=== PATIENT | female | born 1980 | race Caucasian/White ===

== ENCOUNTER 2020-07-11 00:26 | Inpatient (IN) | payer OTHER, SELFPAY ==
[2020-07-11] VITALS (13 sets, daily range): BP systolic 105–169; BP diastolic 52–97
[~2020-07-11] VITALS: Ht 162.6 cm; Wt 125.7 kg
[2020-07-11] MEDS ORDERED: ZOFRAN IV STA ×2 (00:37→02:34)
[2020-07-11] MEDS ORDERED: TORADOL IV STA (00:37)
[2020-07-11] MEDS ORDERED: NS 1000ML 1,000 ML STA ×2 (00:37→02:46)
[2020-07-11] MEDS ORDERED: NS 1000ML 1,000 ML ONE (00:46)
[2020-07-11] MEDS ORDERED: ZOFRAN ONE ×3 (00:46→10:54)
[2020-07-11] MEDS ORDERED: TORADOL ONE ×2 (00:46→10:54)
--- NOTE | 2020-07-11 00:46 | ER.PDOC ---
General Chief Complaint: Abdomen Pain Stated Complaint: GALLBLADDER ATTACK Time seen by MD: 00:32 Source: patient Exam Limitations: no limitations History of Present Illness Initial Comments Patient reports that 1 hour [employer] she had onset of sharp RUQ pain that radiates to her back. She took tums thinking it was heartburn but the pain worsened. Pain is 10/10. Reports nausea but denies vomiting. Last BM was nml. Ate meatballs at 7pm. Has had prior gallbladder issues but this is much worse. Subjective fever and chills. Allergies: Coded Allergies: morphine (Verified Allergy, Severe, Headache, 07/11/20) PATIENT BECOMES AGGRESSIVE AND AGITATED Vital Signs First Vital Signs Date Time Temp Pulse Resp B/P (MAP) Pulse Ox O2 Delivery O2 Flow Rate FiO2 07/11/20 00:35 98.0 83 18 98 07/11/20 00:35 169/84 (112) Room Air Last Vital Signs Date Time Temp Pulse Resp B/P (MAP) Pulse Ox O2 Delivery O2 Flow Rate FiO2 07/11/20 00:35 98.0 83 18 07/11/20 00:35 169/84 (112) 98 Room Air Past Medical History Medical History: no pertinent history Social History Alcohol Use: occassionally Drug Use: none Reviewed Nursing Reviewed: Vital Signs, Abn. Noted, Nursing Assessment Constitutional: see HPI EENTM: no symptoms reported Respiratory: no symptoms reported Cardiovascular: no symptoms reported Gastrointestinal: see HPI Genitourinary: no symptoms reported Musculoskeletal: no symptoms reported Skin: no symptoms reported Psychiatric/Neurological: no symptoms reported All Other Systems: Reviewed and Negative Physical Exam General Appearance: Moderate Distress, Obese HEENT: PERRL/EOMI, Normal ENT Inspection Neck: Non-Tender, Supple Respiratory: chest non-tender, lungs clear, normal breath sounds, no respiratory distress Cardiovascular: Normal Peripheral Pulses, Regular Rate, Rhythm Gastrointestinal: Normal Bowel Sounds, Soft, Other (RUQ TTP. Positive Avalon Sign. No guarding or rebound) Back: Normal Inspection, No Vertebral Tenderness Neurologic/Psychiatric: No Motor/Sensory Deficits, Alert Skin: Normal Color, Warm/Dry Results/Orders Results/Orders Orders - RAULITO FAJARDO MD Cbc With Auto Diff (07/11/20 00:37) Comprehensive Metabolic Panel (07/11/20 00:37) Amylase (07/11/20 00:37) Lipase (07/11/20 00:37) PT (07/11/20 00:37) Partial Thromboplastin Time. (07/11/20 00:37) Urinalysis (07/11/20 00:37) Saline Lock (07/11/20 00:37) 0.9 % Sodium Chloride (Ns 1000ml) (07/11/20 00:37) Ketorolac Tromethamine (Toradol) (07/11/20 00:37) Ondansetron Hcl/Pf (Zofran) (07/11/20 00:37) Us Gallbladder (07/11/20 00:37) 0.9 % Sodium Chloride (Ns 1000ml) (07/11/20 00:46) Ondansetron Hcl/Pf (Zofran) (07/11/20 00:46) Ketorolac Tromethamine (Toradol) (07/11/20 00:46) Hcg Qualitative Serum (07/11/20 00:46) Fentanyl Citrate/Pf (Sublimaze) (07/11/20 02:34) Ondansetron Hcl/Pf (Zofran) (07/11/20 02:35) Fentanyl Citrate/Pf (Sublimaze) (07/11/20 02:34) Ondansetron Hcl/Pf (Zofran) (07/11/20 02:34) Vital Signs Date Time Temp Pulse Resp B/P (MAP) Pulse Ox O2 Delivery O2 Flow Rate FiO2 07/11/20 00:35 98.0 83 18 07/11/20 00:35 98.0 83 18 169/84 (112) 98 Room Air 07/11/20 00:35 98.0 83 18 98 Administered Medications Medications (Trade) Dose Ordered Sig/Dorene Route PRN Reason Start Time Stop Time Status Last Admin Dose Admin Ketorolac Tromethamine (Toradol) 30 mg STAT STAT IV 07/11/20 00:37 07/11/20 00:43 DC 07/11/20 01:06 30 MG Ondansetron HCl (Zofran) 4 mg STAT STAT IV 07/11/20 00:37 07/11/20 00:43 DC 07/11/20 01:06 4 MG Sodium Chloride 1,000 ml @ 0 mls/hr Q0M STAT IV 07/11/20 00:37 07/11/20 00:43 DC 07/11/20 01:06 1,200 MLS/HR Laboratory Tests Test 07/11/20 00:50 White Blood Count 10.0 10^3/uL (4.5-11.0) Red Blood Count 4.94 10^6/uL (4.00-5.20) Hemoglobin 13.9 g/dL (12.0-15.0) Hematocrit 41.9 % (36.0-46.0) Mean Corpuscular Volume 84.8 fL (78-100) Mean Corpuscular Hemoglobin 28.1 pg (26-34) Mean Corpuscular Hemoglobin Concent 33.2 g/dL (33-36.5) Red Cell Distribution Width 13.4 % (11.5-14.5) Platelet Count 252 10^3/uL (150-400) Mean Platelet Volume 9.5 fL (7.8-11.0) Neutrophils (%) (Auto) 47.5 % (41.0-85.0) Lymphocytes (%) (Auto) 43.3 % (24.0-44.0) Monocytes (%) (Auto) 6.7 % (5.0-12.0) Neutrophils # (Auto) 4.8 10^3/uL (1.8-7.7) Lymphocytes # (Auto) 4.34 10^3/uL1 (1.0-4.8) Monocytes # (Auto) 0.7 10^3/uL (0.3-0.8) Absolute Immature Granulocyte (auto 0.03 10^3 u/L (0-2) Absolute Eosinophils (auto) 0.2 10^3/uL (0.0-0.2) Immature Granulocytes % 0.30 % (0.00-0.50) Eosinophils % 1.8 % (0.0-5.0) Basophils % 0.4 % (0.0-0.2) H Basophils # 0.0 10^3/uL (0.0-0.1) Prothrombin Time 10.8 SEC (9.3-11.3) Prothrombin Time INR (Non-Therap) 1.1 Activated Partial Thromboplast Time 19.1 SEC (24.67-30.72) Sodium Level 141 mmol/L (132-145) Potassium Level 4.0 mmol/L (3.6-5.2) Chloride Level 106.0 mmol/L (96-109) Carbon Dioxide Level 24.4 mmol/L (20.0-32) Anion Gap 14.6 Blood Urea Nitrogen 14 mg/dL (7-18) Creatinine 0.95 mg/dL (0.59-1.40) Estimated GFR () 79.2 (>/=60) Est GFR (CKD-EPI)(Non-Afr Lao) 65.5 (>/=60) BUN/Creatinine Ratio 14.0 Glucose Level 114 mg/dL (70-110) H Calcium Level 9.0 mg/dL (8.4-10.5) Total Bilirubin 0.2 mg/dL (0.2-1.0) Aspartate Amino Transferase (AST) 13 U/L (0-35) Alanine Aminotransferase (ALT) 23 U/L (12-78) Alkaline Phosphatase 64 U/L (50-136) Total Protein 7.1 g/dL (6.4-8.2) Albumin 3.8 g/dL (3.4-5.0) Globulin 3.3 Albumin/Globulin Ratio 1.151 Amylase Level 42 U/L (25-115) Lipase 163 U/L (114-286) Serum HCG, Qualitative NEGATIVE (NEGATIVE) Progress Progress The patient feels improved on repeat evaluation. Pain is down to 2/10 in severity. Abdominal exam is much improved with very mild tenderness on palpation of the RUQ and negative Avalon sign. She is afebrile and WBC are normal although on the high side of normal. US is suggestive of early acute cholecystitis vs biliary colic. MInimal thickening of the GB wall at 4mm but without pericholic fluid. Discussed admission for surgical evaluation vs d ischarge with outpatient surgical referral. She understands that is she goes home and the pain returns she can return at any time. SHe will be given PO challenge and let us know how she would like to proceed pain is returning after PO challenge. Patient agreeable to admission Discussed with Dr Santos. He requested that she be admitted to the Hospitalist. She was then discussed with Dr Blandon and accepted for admission. Zosyn ordered for Abx coverage ER DEPART Departure Time of Disposition: 02:44 Disposition: 09 ADMITTED INPATIENT Impression: Primary Impression: Acute cholecystitis Condition: Stable Referrals: PCP,UNKNOWN (PCP) PRIMARY CARE PROVIDER Duration or Time Spent with Pa: 25 RAULITO FAJARDO MD Jul 11, 2020 00:46
--- NOTE | 2020-07-11 01:15 | NUR ---
US PATIENT TAKEN TO US VIA WHEELCHAIR WITH IVF INFUSING. MITZY, TECH TO TRANSPORT.
[2020-07-11 01:19] LABS: BASOPHIL % 0.4 % (0.0-0.2); EOSINOPHIL # 0.2 10^3/uL (0.0-0.2); EOSINOPHIL % 1.8 % (0.0-5.0); LYMPHOCYTES # 4.34 10^3/uL1 (1.0-4.8); LYMPHOCYTES % 43.3 % (24.0-44.0); MEAN CORP HGB 28.1 pg (26-34); MONOCYTES # 0.7 10^3/uL (0.3-0.8); MONOCYTES % 6.7 % (5.0-12.0); NEUTROPHIL # 4.8 10^3/uL (1.8-7.7); NEUTROPHILS % 47.5 % (41.0-85.0); PLATELET COUNT 252 10^3/uL (150-400); RED CELL DISTRIBUTION WIDTH 13.4 % (11.5-14.5)
[2020-07-11 01:30] LABS: CARBON DIOXIDE 24.4 mmol/L (20.0-32)
[2020-07-11] MEDS ORDERED: SUBLIMAZE IV STA (02:34)
[2020-07-11] MEDS ORDERED: SUBLIMAZE ONE ×2 (02:34→10:55)
[2020-07-11] MEDS ORDERED: ZOSYN 3.375 GM 3.375 GM in NS 100ML 100 ML IV STA (02:45)
--- NOTE | 2020-07-11 03:05 | NUR ---
This received patient and report via stretcher from Winifred DELGADO. Patient stable, vs wnl, with no respiratory distress noted, and denies pain or discomfort at this time. Will continue to monitor.
[2020-07-11 03:09] LABS: APPEARANCE,URINE TURBID (CLEAR); BILIRUBIN,URINE NEGATIVE (NEGATIVE); UA COLOR YELLOW (YELLOW); UROBILINOGEN,URINE 0.2 (NEGATIVE)
[2020-07-11] MEDS ORDERED: NS 1000ML 1,000 ML IV SCH (09:00)
[2020-07-11] MEDS ORDERED: ULTRAM PO PRN (09:00)
[2020-07-11] MEDS ORDERED: ZOFRAN IV PRN (09:00)
--- NOTE | 2020-07-11 09:26 | PCM.HP ---
History of Present Illness Hx of Present Illness 40-year-old morbidly obese female presented to [facility] secondary to right upper quadrant pain With radiation to back with associated nausea But no vomiting. Patient notes that her symptoms initiated Late last night. Her pain was reported to be 10 of 10 at that time currently 5 out of 10 on examination positive Cazares sign. Ultrasound of right upper quadrant revealed cholelithiasis with borderline wall thickening at 4mm tech reported positive Cazares sign. No pericholecystic fluid.General surgery has been consulted much appreciated will follow recommendations. We will continue antimicrobial therapy maintain n.p.o. and IV fluid therapy with pain control with p.o. analgesics.Deb ent describes previous medical history gallbladder pain approximately 1 year ago that was less severe than her current situation.Patient does not take any home medications. Travel History EBOLA RISK:Travel to/contact w: No Is pt experiencing any Ebola s: No Review of Systems Constitutional: No: Fever, Chills, Sweats, Weakness, Malaise, Other Eyes: No: Pain, Vision change, Conjunctivae inflammation, Eyelid inflammation, Other, Redness ENT: No: Ear pain, Ear discharge, Nose pain, Nose discharge, Nose congestion, Mouth pain, Mouth swelling, Throat pain, Throat swelling, Other Respiratory: No: Cough, Dry, Shortness of breath, SOB with excertion, Wheezing, Hemoptysis, Pleuritic Pain, Sputum, Wheezing, Other Cardiovascular: No: Chest Pain, Palpitations, Orthopnea, Paroxysmal Noc. Dyspnea, Edema, Lt Headedness, Other Gastrointestinal: Nausea, Abdominal Pain; No: Vomiting, Diarrhea, Constipation, Melena, Hematochezia, Other Genitourinary: No Dysuria, No Frequency, No Incontinence, No Hematuria, No Retention, No Other Musculoskeletal: No: other, neck pain, shoulder pain, arm pain, back pain, hand pain, leg pain, foot pain Skin: No: Rash, Lesions, Jaundice, Bruising, Other Neurological: No: Weakness, Numbness, Incoordination, Change in speech, Confusion, Seizures, Other Allergies: Coded Allergies: morphine (Verified Allergy, Severe, Headache, 07/11/20) PATIENT BECOMES AGGRESSIVE AND AGITATED VTE VTE Risk Total Score: 1 VTE Risk Score VTE Risk: Score 0-1 = Low Risk (Aggressive mobilization; early ambulation; no VTE prophylaxis required) Score 2: Moderate Risk (Intermittent/Pneumatic Compression Device OR Lovenox/Heparin/Coumadin) Score 3-4: High Risk (Intermittent/Pneumatic Compression Device AND Lovenox/Heparin/Coumadin) Score > or =5: Highest Risk (Intermittent/Pneumatic Compression Device AND Lovenox/Heparin/Coumadin) Antico:Hep/LMWH/Coum/Xarelto: No Mechanical device ordered: Yes VTE VTE Present on Admission: No Currently receiving anticoagul: No VTE Risk Total Score: 1 Exam Vital Signs Vital Signs Date Time Temp Pulse Resp B/P (MAP) Pulse Ox O2 Delivery O2 Flow Rate FiO2 07/11/20 09:08 Room Air 07/11/20 08:27 98.0 65 24 105/52 (69) 92 General Appearance: Alert, Oriented X3, Cooperative HEENT: Atraumatic, PERRLA, EOMI, Mucous membr. moist/pink Respiratory: Clear to auscultation, Normal air movement Cardiovascular: Regular rate, Normal S1, Normal S2 Abdominal: Other (Right upper quadrant tenderness, positive Cazares sign) Extremities: No clubbing, No cyanosis, No edema Skin: No rash, No breakdown, No lesions Neuro: Normal gait, Normal speech, Strength at 5/5 X4 ext Psych/Mental Status: Mental status NL, Mood NL Assessment/Plan Assessment/Plan Assessment/Plan 40-year-old morbidly obese female presented to [facility] secondary to right upper quadrant pain With radiation to back with associated nausea But no vomiting. Patient notes that her symptoms initiated Late last night. Her pain was reported to be 10 of 10 at that time currently 5 out of 10 on examination po sitive Cazares sign. Ultrasound of right upper quadrant revealed cholelithiasis with borderline wall thickening at 4mm tech reported positive Cazares sign. No pericholecystic fluid.General surgery has been consulted much appreciated will follow recommendations. We will continue antimicrobial therapy maintain n.p.o. and IV fluid therapy with pain control with p.o. analgesics.Patient describes previous medical history gallbladder pain approximately 1 year ago that was less severe than her current situation.Patient does not take any home medications. Plan Cholelithiasis Ultrasound revealed cholelithiasis, not excluded from acute cholecystitis C BD 5 mm. Borderline gallbladder wall thickening at 4 mm positive Cazares sign Consultation to general surgery much appreciated will follow recommendations N.p.o. IV fluid therapy P.o. analgesic pain control Zosyn antimicrobial therapy RAQUEL Lund NP Jul 11, 2020 09:26
[2020-07-11] MEDS ORDERED: SUBLIMAZE IV PRN (09:30)
--- NOTE | 2020-07-11 09:42 | PCM.EKG ---
[facility] Test Date: 2020-07-11 Test Time: 09:39:27 Pat Name: BRO PETERS Department: Room: 330 A Gender: F Therapist Phys: MARGRET : [id number] Requested By: RAQUEL INMAN Order Number: [id number] Reading MD: Measurements Intervals Warden Rate: 65 P: 61 VT: 158 QRS: -2 QRSD: 104 T: 25 QT: 406 QTc: 423 Interpretive Statements Sinus rhythm Low voltage, precordial leads No previous ECG available for comparison Please click the below link to view image of tracing.
[2020-07-11] MEDS ORDERED: ZOSYN 3.375 GM 3.375 GM in NS 100ML 100 ML IV SCH (10:00)
--- NOTE | 2020-07-11 10:45 | PRM.CONS ---
Consultation Reason for Consult: Reason for Consultation: Acute cholecystitis History of Present Illness History of Patient Comments This is a 40yo woman with morbid obesity BMI 47, who presents with several hours of severe abdominal pain. Pain began 2h after eating meat load yest evening and was focused in the right upper quadrant. The pain gradually worsened and was stabbing in nature with radiation to the back and shoulder, and was a/w nausea without emesis and with chills without fever. The pt presented to the ED for evaluation. She experienced a similar attack of pain a year or so ago in [place] and was informed she had gallstone disease; she did not pursue cholecystectomy at that time. In the ED the pt was found to be afebrile. There was abdominal tenderness and labs showed a WBC ct 10 with normal LFTs, serum bilirubin, and lipase. a RUQ US showed cholelithiasis without signs of acute cholecystitis. The patient was admitted to the hospital and started on broad spec abx and kept NPO until time of consultation. This morning, she feels somewhat better but still has some soreness in the RUQ. It has improved from prior. She has remained afebrile. Vitals & Lab Afebrile HR 82 BP 120/64 General Time seen by MD: 07:03 Source: patient Exam Limitations: no limitations Allergies Allergies: Coded Allergies: morphine (Verified Allergy, Severe, Headache, 07/11/20) PATIENT BECOMES AGGRESSIVE AND AGITATED Physical Exam General Appearance: alert, no distress Head: no evidence of trauma Neck: non-tender, painless ROM Eyes: PERRL, EOMI, no nystagmus ENT: nml ext. inspection Resp/CVS: chest non-tender, no ecchymosis, breath sounds nml, no resp. distress, heart sounds nml Abdomen: other (Soft; obese. There is ttp in the RUQ and no Cazares's sign is present.) Neuro/Psych: oriented x3, CN's nml as tested Skin: intact, warm/dry, nml color Back: no CVA tenderness, no vertebral tenderness Extremities: No Evidence of Injury, Normal Range of Motion, Non-Tender, No Pedal Edema Nasreen Coma Score Best Eye Response: (4) Open Spontaneously Best Verbal Response: (5) Oriented Best Motor Response: (6) Obeys Commands Review of Systems Constitutional: No: Fever, Chills, Sweats, Weakness, Malaise, Other Eyes: No: Pain, Vision change, Conjunctivae inflammation, Eyelid inflammation, Other, Redness ENT: No: Ear pain, Ear discharge, Nose pain, Nose discharge, Nose congestion, Mouth pain, Mouth swelling, Throat pain, Throat swelling, Other Respiratory: No: Cough, Dry, Shortness of breath, SOB with excertion, Wheezing, Hemoptysis, Pleuritic Pain, Sputum, Wheezing, Other Cardiovascular: No: Chest Pain, Palpitations, Orthopnea, Paroxysmal Noc. Dyspnea, Edema, Lt Headedness, Other Gastrointestinal: Nausea, Abdominal Pain; No: Vomiting, Diarrhea, Constipation, Melena, Hematochezia, Other Genitourinary: No Dysuria, No Frequency, No Incontinence, No Hematuria, No Retention, No Other Musculoskeletal: No: other, neck pain, shoulder pain, arm pain, back pain, hand pain, leg pain, foot pain Skin: No: Rash, Lesions, Jaundice, Bruising, Other Neurological: No: Weakness, Numbness, Incoordination, Change in speech, Confusion, Seizures, Other VTE VTE Risk assessment 3 VTE Risk Total Score: 1 VTE Risk Score VTE Risk: Score 0-1 = Low Risk (Aggressive mobilization; early ambulation; no VTE prophylaxis required) Score 2: Moderate Risk (Intermittent/Pneumatic Compression Device OR Lovenox/Heparin/Coumadin) Score 3-4: High Risk (Intermittent/Pneumatic Compression Device AND Lovenox/Heparin/Coumadin) Score > or =5: Highest Risk (Intermittent/Pneumatic Compression Device AND Lovenox/Heparin/Coumadin) Antico:Hep/LMWH/Coum/Xarelto: Yes Mechanical device ordered: Yes Assessment/Plan Assessment/Plan Assessment/Plan This is a 40yo woman withj morbid obesity who presents with what appears to be biliary colic. Plan Will plan for laparoscopic cholecystectomy today The risks, benefits, alternatives were discussed with the patient including but not limited to, bleeding, infection, hernia, ACS/AR, DVT/PE, wound complications, need for open surgery, bile duct injury, bile leak, retained gallstone, and she provided informed consent. JARAD AZEVEDO MD Jul 11, 2020 10:45
[2020-07-11] MEDS ORDERED: SODIUM CHLORIDE IRR BOTTLE IR ONE (10:50)
[2020-07-11] MEDS ORDERED: SODIUM CHLORIDE IRR BAG IR ONE (10:50)
[2020-07-11] MEDS ORDERED: LIDOCAINE 2% VIAL ONE (10:53)
[2020-07-11] MEDS ORDERED: BRIDION IV ONE (10:54)
[2020-07-11] MEDS ORDERED: ROCURONIUM BROMIDE IV ONE (10:54)
[2020-07-11] MEDS ORDERED: DIPRIVAN IV ONE (10:55)
[2020-07-11] MEDS ORDERED: DECADRON ONE (10:55)
[2020-07-11] MEDS ORDERED: QUELICIN ONE (10:55)
[2020-07-11] MEDS ORDERED: SENSORCAINE-MPF 0.25% VIAL ONE (11:02)
[2020-07-11] MEDS ORDERED: OFIRMEV 100 ML IV ONE (11:17)
--- NOTE | 2020-07-11 11:39 | PRM.OPH ---
Immediate Post Op Note Summary of Operation Date: Jul 11, 2020 Time: 11:38 Pre-Operative DX: Biliary colic Post-OP DX: Acute cholecystitis Anesth.Used: GETA Indications: This is a 40-year-old woman who is recently post- who has a history of symptomatic cholelithiasis. She presents with several hours of upper abdominal pain, nausea, and emesis. There was tenderness in these areas on physical exam and the patient was afebrile. White blood cell count, LFTs, and lipase preoperatively were normal. Ultrasound demonstrated cholelithiasis with signs suggestive of cholecystitis. The patient was given IV antibiotic and counseled on the risks, benefits, and alternatives to laparoscopic cholecystectomy. She provided informed consent. Physician's Summary: The patient was brought to the operating room and placed supine on the OR table. Venodyne boots were applied; preoperative antibiotics had been administered. She then underwent general anesthesia and was intubated without incident. The abdomen was prepped and draped in the usual fashion. A time out was performed for patient safety. We began by making a stab incision in the left upper quadrant; a Veress needle was placed and after appropriate safety check x 5, a pneumoperitoneum to a pressure of 15mm Hg was obtained. A 12mm incision was made in the supraumbilical region and an optical viewing trocar was placed at this site. We inserted the laparoscope and ensured there had been no entry injuries. The Veress needle was removed. Three 5mm trocars were then placed; one in the subxiphoid region, one in the right subcostal region, and one in the lateral right abdomen. The gallbladder was found in its normal anatomic position and was acutely inflamed. Jami's pouch was identified and retracted laterally and the fundus of the gallbladder was grasped and retracted cephalad. The peritoneum over the region of the gallbladder was incised with cautery in a region overlying Calot's triangle. The peritoneum continued to be opened medially and laterally, with the L-hook. We did this until we mobilized the gallbladder and the cystic plate was identified; the cystic duct and artery were identified and dissected free. A large stone impacted in the neck of the gallbladder was advanced into the distal gallbladder lumen. A critical view of safety was obtained. The cystic duct and artery were triply clipped with the laparoscopic clip annealer. Both structures were then divided with Endoshears, with care to ensure stumps of adequate length on both. I did place a 0-PDS Endoloop below the clips on the cystic duct remnant, as it appeared somewhat dilated. No palpable stones were present distally, however. In order to do this, a separate 5mm trocar was placed in the paramedian position on the right, to aid in retraction of omental fat. The gallbladder was then placed in an Endocatch bag and retrieved from the umbilical port; it was then sent off the field to pathology. We inspected the gallbladder fossa and ensured hemostasis. The stump of the cystic duct was inspected; the clips remained in place and there was no bile leak present. With this, we terminated the procedure. The anterior fascia at the umbilical port site was closed with an 0-Vicryl suture using the Dmitry-Karo device, in a figure of eight technique. The trocars were then removed and the pneumoperitoneum was released. Local anesthetic was used at the port sites and the skin of all incisions was closed with 4-0 Monocryl suture. Dermabond was placed as dressing. All scrub counts were complete x 2 at this point. The patient had tolerated the procedure well and was extubated without complications. She was thereafter sent to the recovery room in stable condition. I was present and scrubbed for the entirety of this case. Estimated Blood Loss: EBL/ESTIMATED BLOOD LOSS: (MIL: 10 Complications: Complications: None Assessment & Plan: Assessment & Plan: Extubated and to recovery, in stable condition JARAD AZEVEDO MD Jul 11, 2020 11:39
[2020-07-11] MEDS ORDERED: HEPARIN ONE (12:11)
[2020-07-11] MEDS ORDERED: VENTOLIN HFA IH ONE (13:39)
[2020-07-11] MEDS ORDERED: ACET1TAB34 PO (14:33)
--- NOTE | 2020-07-11 14:36 | NUR ---
Pt returned to floor via stretcher post op procedure cholecystectomy. Report given by nurse.Pt awake oriented X 3 groggy from anesthesia Vital signs stable, c/o pain to the abdomen surgical site but tolerable. Fluids running , O2 @ 2L via NC.No drainage noted to surgical site.
--- NOTE | 2020-07-11 16:26 | DIREP ---
PROCEDURE: US ABDOMEN LIMITED (SINGLE ORGAN - QUAD) COMPARISON: None. INDICATIONS: RUQ pain TECHNIQUE: High resolution sonographic examination was performed of the abdomen. FINDINGS: RIGHT KIDNEY: 10.74 cm x 4.49 cm x 4.64 cm, 117.31 ml GALL BLADDER WALL: 3.73 mm CBD: 5 mm PANCREAS: Normal. LIVER: Diffusely hyperechoic, consistent with steatosis. No focal lesion noted. BILIARY: Cholelithiasis. Borderline gallbladder wall thickening at 4 mm. Tech reports a positive sonographic Cazares's sign. No pericholecystic fluid. RIGHT KIDNEY: Negative. OTHER: Negative. CONCLUSION: 1. Cholelithiasis with minimal gallbladder wall thickening and positive sonographic Cazares's sign. Acute cholecystitis is not excluded in this setting. 2. Hepatic steatosis. Dictated by: Manpreet Manley M.D. on 07/11/2020 at 02:04 AM N [facility]
--- NOTE | 2020-07-11 17:28 | PRM.DC ---
Discharge Summary Date of Discharge: Jul 11, 2020 Time of Request to Discharge: 17:21 Reason for Visit: Acute cholecystitis Hospital Course Assessment/Plan 40-year-old morbidly obese female presented to [facility] secondary to right upper quadrant pain With radiation to back with associated nausea But no vomiting. Patient notes that her symptoms initiated Late last night. Her pain was reported to be 10 of 10 at that time currently 5 out of 10 on examination positive Cazares sign. Ultrasound of right upper quadrant revealed cholelithiasis with borderline wall thickening at 4mm tech reported positive Cazares sign. No pericholecystic fluid.General surgery has been consulted much appreciated will follow recommendations. We will continue antimicrobial therapy maintain n.p.o. and IV fluid therapy with pain control with p.o. analgesics.Patient describes previous medical history gallbladder pain approximately 1 year ago that was less severe than her current situation.Patient does not take any home medications. Plan CholelithiasisWith cholecystitis Ultrasound revealed cholelithiasis, not excluded from acute cholecystitis C BD 5 mm. Borderline gallbladder wall thickening at 4 mm positive Cazares sign Consultation to general surgery much appreciated will follow recommendations- Patient underwent cholecystectomy laparoscopic tolerating p.o. IV fluid therapy P.o. analgesic pain control Zosyn antimicrobial therapy Zofran General: Alert, Oriented X3, Cooperative HEENT: Atraumatic, PERRLA, EOMI Neck: Supple, No JVD, No thyromegaly Lungs: Clear to auscultation, Normal air movement Heart: Regular rate, Normal S1, Normal S2 Abdomen: Normal bowel sounds, Soft, Other (Tenderness to surgical incision sites) Extremities: No clubbing, No cyanosis, No edema Skin: No rashes, No breakdown, No significant lesion Neuro: Normal gait, Normal speech, Strength at 5/5 X4 ext Psych/Mental Status: Mental status NL, Mood NL Scheduled PRN Acetaminophen With Codeine (Tylenol-Cod #3 Tablet), 1 TAB PO Q6 PRN for PAIN, (Reported) Sepsis Evaluation @ Discharge 07/11/20 04:20 Review of Systems Constitutional: denies no symptoms reported, denies see HPI, denies chills, denies diaphoresis, denies fever, denies malaise, denies weakness, denies other EENTM: denies no symptoms reported, denies see HPI, denies eye pain, denies blurred vision, denies tearing, denies double vision, denies ear pain, denies ear discharge, denies nose pain, denies nose congestion, denies throat pain, denies throat swelling, denies mouth pain, denies mouth swelling, denies other Respiratory: denies no symptoms reported, denies see HPI, denies cough, denies orthopnea, denies shortness of breath, denies stridor, denies wheezing, denies other Cardiovascular: denies no symptoms reported, denies see HPI, denies chest pain, denies edema, denies palpitations, denies syncope, denies other Gastrointestinal: denies no symptoms reported; see HPI; denies abdominal pain, denies constipation, denies diarrhea, denies nausea, denies vomiting, denies other Genitourinary: denies no symptoms reported, denies see HPI, denies discharge, denies dysuria, denies frequency, denies hematuria, denies pain, denies other Musculoskeletal: denies no symptoms reported, denies see HPI, denies back pain, denies gout, denies joint pain, denies joint swelling, denies muscle pain, denies muscle stiffness, denies neck pain, denies other Skin: denies no symptoms reported; see HPI; denies change in color, denies change in hair/nails, denies dryness, denies lesions, denies lumps, denies rash; other (surgical incisional pain) Psychiatric/Neurological: denies no symptoms reported, denies see HPI, denies anxiety, denies depressed, denies emotional problems, denies headache, denies numbness, denies paresthesia, denies pre-existing deficit, denies seizure, denies tingling, denies tremors, denies weakness, denies other Endocrine: denies no symptoms reported, denies see HPI, denies excessive sweating, denies flushing, denies intolerance to cold, denies intolerance to he at, denies increased hunger, denies increased thrist, denies increased urine, denies unexplained weight gain, denies unexplaned weight loss, denies other Hematologic/Lymphatic: denies no symptoms reported, denies see HPI, denies anemia, denies blood clots, denies easy bleeding, denies easy bruising, denies swollen glands, denies other All Other Systems: Reviewed and Negative Course Sepsis Screening Results: Posi: NEGATIVE Sepsis Qualifier/Stage: NO DEFINITE RISK Duration or Total Time Spent w: 25 Vitals & review Data Vital Sign - Last 24 Hours 07/11/20 07/11/20 07/11/20 07/11/20 00:35 00:35 00:35 01:35 Temp 98.0 98.0 98.0 Pulse 83 83 83 73 Resp 18 18 18 16 B/P (MAP) 169/84 (112) 154/73 (100) Pulse Ox 98 98 100 O2 Delivery Room Air Room Air 07/11/20 07/11/20 07/11/20 07/11/20 02:35 03:10 04:10 04:12 Temp 97.7 97.7 Pulse 81 83 77 Resp 17 18 18 B/P (MAP) 157/84 (108) 154/77 (102) 138/67 (90) Pulse Ox 98 95 O2 Delivery Room Air Room Air Room Air Room Air O2 Flow Rate 98.00 07/11/20 07/11/20 07/11/20 07/11/20 08:27 09:08 13:50 13:50 Temp 98.0 97.8 Pulse 65 93 Resp 24 16 B/P (MAP) 105/52 (69) 150/93 (112) Pulse Ox 92 O2 Delivery Room Air Non-Rebreather O2 Flow Rate 15 15 07/11/20 07/11/20 07/11/20 07/11/20 13:55 14:00 14:10 14:20 Temp 97.8 97.9 97.9 97.8 Pulse 91 87 88 88 Resp 16 16 18 18 B/P (MAP) 148/89 (108) 156/95 (115) 141/89 (106) 141/89 (106) Pulse Ox 95 95 95 95 O2 Delivery Non-Rebreather Non-Rebreather Nasal [place] Nasal Canula O2 Flow Rate 15 15 3 3 07/11/20 14:25 Temp 97.8 Pulse 98 Resp 18 B/P (MAP) 148/92 (110) Pulse Ox 94 O2 Delivery Nasal [place] O2 Flow Rate 3 Laboratory Tests Test 07/11/20 00:50 07/11/20 03:00 07/11/20 09:29 White Blood Count 10.0 10^3/uL Red Blood Count 4.94 10^6/uL Hemoglobin 13.9 g/dL Hematocrit 41.9 % Mean Corpuscular Volume 84.8 fL Mean Corpuscular Hemoglobin 28.1 pg Mean Corpuscular Hemoglobin Concent 33.2 g/dL Red Cell Distribution Width 13.4 % Platelet Count 252 10^3/uL Mean Platelet Volume 9.5 fL Neutrophils (%) (Auto) 47.5 % Lymphocytes (%) (Auto) 43.3 % Monocytes (%) (Auto) 6.7 % Neutrophils # (Auto) 4.8 10^3/uL Lymphocytes # (Auto) 4.34 10^3/uL1 Monocytes # (Auto) 0.7 10^3/uL Absolute Immature Granulocyte (auto 0.03 10^3 u/L Absolute Eosinophils (auto) 0.2 10^3/uL Immature Granulocytes % 0.30 % Eosinophils % 1.8 % Basophils % 0.4 % Basophils # 0.0 10^3/uL Prothrombin Time 10.8 SEC 10.7 SEC Prothrombin Time INR (Non-Therap) 1.1 1.1 Activated Partial Thromboplast Time 19.1 SEC 23.4 SEC Sodium Level 141 mmol/L Potassium Level 4.0 mmol/L Chloride Level 106.0 mmol/L Carbon Dioxide Level 24.4 mmol/L Anion Gap 14.6 Blood Urea Nitrogen 14 mg/dL Creatinine 0.95 mg/dL Estimated GFR () 79.2 Est GFR (CKD-EPI)(Non-Afr Guamanian) 65.5 BUN/Creatinine Ratio 14.0 Glucose Level 114 mg/dL Calcium Level 9.0 mg/dL Total Bilirubin 0.2 mg/dL Aspartate Amino Transf (AST/SGOT) 13 U/L Alanine Aminotransferase (ALT/SGPT) 23 U/L Alkaline Phosphatase 64 U/L Total Protein 7.1 g/dL Albumin 3.8 g/dL Globulin 3.3 Albumin/Globulin Ratio 1.151 Amylase Level 42 U/L Lipase 163 U/L Serum HCG, Qualitative NEGATIVE Urine Collection Type CCMS Urine Color YELLOW Urine Appearance TURBID Urine Bilirubin NEGATIVE MG/DL Urine Ketones NEGATIVE Urine Specific [place] 1.025 Urine pH 7.0 Urine Protein NEGATIVE Urine Urobilinogen 0.2 Urine Nitrate NEGATIVE Urine Leukocyte Esterase NEGATIVE Urine Blood NEGATIVE Urine Glucose NEGATIVE Current Medications Medications (Trade) Dose Ordered Sig/Dorene PRN Reason Start Time Stop Time Status Last Admin Fentanyl Citrate (Sublimaze) 25 mcg Q6H PRN PAIN 7 - 10 07/11/20 09:30 08/10/20 09:29 Ondansetron HCl (Zofran) 4 mg Q4H PRN NAUSEA / VOMITING 07/11/20 09:00 08/10/20 08:59 Piperacillin Sod/ Tazobactam Sod 3.375 gm/Sodium Chloride 100 ml @ 100 mls/hr Q6H 07/11/20 10:00 08/10/20 09:59 07/11/20 10:20 Sodium Chloride 1,000 ml @ 100 mls/hr Q10H 07/11/20 09:00 08/10/20 08:59 07/11/20 10:20 Tramadol HCl (Ultram) 50 mg Q4HR PRN PAIN 4 - 6 07/11/20 09:00 08/10/20 08:59 07/11/20 10:30 LEVEL 1 SEPSIS INFECTION CRITE: ABX Therapy, Abdominal Pain O2 Sat by Pulse Oximetry: 94 Oxygen Flow Rate: 3 Plan Assessment 40-year-old morbidly obese female presented to [facility] secondary to right upper quadrant pain With radiation to back with associated nausea But no vomiting. Patient notes that her symptoms initiated Late last night. Her pain was reported to be 10 of 10 at that time currently 5 out of 10 on examination positive Cazares sign. Ultrasound of right upper quadrant revealed cholelithiasis with borderline wall thickening at 4mm tech reported positive Cazares sign. No pericholecystic fluid.General surgery has been consulted much appreciated will follow recommendations. We will continue antimicrobial therapy maintain n.p.o. and IV fluid therapy with pain control with p.o. analgesics.Patient describes previous medical history gallbladder pain approximately 1 year ago that was less severe than her current situation.Patient does not take any home medications. Patient underwent Lap Maru with Juan A today. FU in one week at clinic. Tolerating PO, some incisional tenderness . Splinting with pillow on cough . T3 for pain control . Discharge Disposition: Stable Plan Plan : DC home Cholelithiasis/Cholecystitis Ultrasound revealed cholelithiasis, not excluded from acute cholecystitis C BD 5 mm. Borderline gallbladder wall thickening at 4 mm positive Cazares sign Consultation to general surgery much appreciated will follow recommendations, underwent Laparoscopic Cholecystectomy tolerating PO P.o. analgesic pain control - Rx for t 3 called in follow up in 1 week with juan a in clinic. RAQUEL INMAN NP Jul 11, 2020 17:28
--- NOTE | 2020-07-11 18:00 | NUR ---
Discharged pt to home. Transferred via w/c, pt accompanied by mother.Discharge instructions and prescription given to patient and signed.Vital signs stable. Peripheral IV L hand removed
== END 2020-07-11 18:00 | disposition home or self-care (01) | DRG 418 ==
LOC: ER 00:26 → MS 02:45
PROVIDERS: ADMIT Family Medicine; ATTEND Family Medicine
PROC: 0FT44ZZ Resection of Gallbladder, Percutaneous Endoscopic Approach (ICD-10-PCS; principal; 2020-07-11 11:31)
DX: K80.00 Calculus of gallbladder with acute cholecystitis without obstruction (principal); Z68.42 Body mass index [BMI] 45.0-49.9, adult; E66.01 Morbid (severe) obesity due to excess calories; Z88.5 Allergy status to narcotic agent; Z79.899 Other long term (current) drug therapy
CPT/HCPCS: 36415; 76705; 80053; 81003; 82150; 83690; 84703; 85025; 85610; 85730; 93005; 99285; A4217; G0378; J0131; J0330; J1100; J1644; J1885; J2001; J2405; J2543; J3010; J3490; J7030; J7050; J7611

== ENCOUNTER 2021-06-22 09:27 | Emergency (ER) | payer SELFPAY, OTHER ==
[~2021-06-22] VITALS: Ht 165.1 cm; Wt 124.7 kg
[~2021-06-22 09:27] MED LIST: ACET1TAB34 PO
[2021-06-22 09:35] VITALS: BP 133/80
[2021-06-22 09:39] VITALS: BP 133/80
[2021-06-22] MEDS ORDERED: TORADOL IM STA (09:53)
[2021-06-22] MEDS ORDERED: NORCO 10MG PO STA (09:53)
[2021-06-22] MEDS ORDERED: PREDNISONE PO STA (09:53)
[2021-06-22 10:04] LABS: BASOPHIL % 0.3 % (0.0-0.2); EOSINOPHIL % 0.3 % (0.0-5.0); LYMPHOCYTES # 1.24 10^3/uL1 (1.0-4.8); LYMPHOCYTES % 40.4 % (24.0-44.0); MEAN CORP HGB 27.2 pg (26-34); MONOCYTES # 0.3 10^3/uL (0.3-0.8); MONOCYTES % 8.5 % (5.0-12.0); NEUTROPHIL # 1.6 10^3/uL (1.8-7.7); NEUTROPHILS % 50.5 % (41.0-85.0); PLATELET COUNT 195 10^3/uL (150-400); RED CELL DISTRIBUTION WIDTH 13.3 % (11.5-14.5)
[2021-06-22] MEDS ORDERED: TORADOL ONE (10:13)
[2021-06-22] MEDS ORDERED: NORCO 10MG PO ONE (10:14)
[2021-06-22] MEDS ORDERED: PREDNISONE ONE (10:14)
--- NOTE | 2021-06-22 10:27 | ER.PDOC ---
General Chief Complaint: General Complaint Stated Complaint: BONE PAIN TRAVEL OUT OF US: No Time seen by MD: 10:33 Source: patient Exam Limitations: no limitations History of Present Illness Timing/Duration: 1 week Severity: moderate Modifying Factors: improves with movement Associated Symptoms: denies symptoms Allergies: Coded Allergies: morphine (Verified Allergy, Severe, Headache, 07/11/20) PATIENT BECOMES AGGRESSIVE AND AGITATED Home Meds Reported Medications Acetaminophen With Codeine (TYLENOL-COD #3 TABLET) 1 Each Tablet, 1 TAB PO Q6 PRN for PAIN, #15 TAB 07/11/20 Past Medical History Medical History: no pertinent history Surgical History: no surgical history Social History Alcohol Use: none Drug Use: none Reviewed Nursing Reviewed: Vital Signs, Abn. 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 NML as Tested, Motor Weakness Skin: Normal Color Lymphatic: No Adenopathy Results/Orders Results/Orders Orders - HERLINDA DUFFY MD Cbc With Auto Diff (06/22/21 09:50) Comprehensive Metabolic Panel (06/22/21 09:50) Creatine Kinase (06/22/21 09:50) Erythrocyte Sedimentation Rate (06/22/21 09:53) C-Reactive Protein (06/22/21 09:53) Rheumatoid Arthritis Factor (06/22/21 09:53) Ketorolac Tromethamine (Toradol) (06/22/21 09:53) Hydrocodone/Acetaminophen (Pierce 10mg) (06/22/21 09:53) Prednisone (Prednisone) (06/22/21 09:53) Ketorolac Tromethamine (Toradol) (06/22/21 10:13) Covid19 Antigen Kristie Rachel (06/22/21 10:23) Influenza A&B (06/22/21 10:23) Vital Signs Date Time Temp Pulse Resp B/P (MAP) Pulse Ox O2 Delivery O2 Flow Rate FiO2 06/22/21 09:39 98.5 104 20 133/80 (97) 99 Room Air 06/22/21 09:35 98.5 104 20 06/22/21 09:35 98.5 104 20 99 Administered Medications Medications (Trade) Dose Ordered Sig/Dorene Route PRN Reason Start Time Stop Time Status Last Admin Dose Admin Acetaminophen/ Hydrocodone Bitart (Pierce 10mg) 1 each STAT STAT PO 06/22/21 09:53 06/22/21 09:54 UNV 06/22/21 10:22 1 EACH Ketorolac Tromethamine (Toradol) 60 mg STAT STAT IM 06/22/21 09:53 06/22/21 09:54 UNV 06/22/21 10:21 60 MG Prednisone (Prednisone) 40 mg STAT STAT PO 06/22/21 09:53 06/22/21 09:54 UNV 06/22/21 10:23 40 MG Laboratory Tests Test 06/22/21 10:00 06/22/21 10:56 White Blood Count 3.1 10^3/uL (4.5-11.0) L Red Blood Count 5.04 10^6/uL (4.00-5.20) Hemoglobin 13.7 g/dL (12.0-15.0) Hematocrit 44.0 % (36.0-46.0) Mean Corpuscular Volume 87.3 fL (78-100) Mean Corpuscular Hemoglobin 27.2 pg (26-34) Mean Corpuscular Hemoglobin Concent 31.1 g/dL (33-36.5) L Red Cell Distribution Width 13.3 % (11.5-14.5) Platelet Count 195 10^3/uL (150-400) Mean Platelet Volume 9.5 fL (7.8-11.0) Neutrophils (%) (Auto) 50.5 % (41.0-85.0) Lymphocytes (%) (Auto) 40.4 % (24.0-44.0) Monocytes (%) (Auto) 8.5 % (5.0-12.0) Neutrophils # (Auto) 1.6 10^3/uL (1.8-7.7) L Lymphocytes # (Auto) 1.24 10^3/uL1 (1.0-4.8) Monocytes # (Auto) 0.3 10^3/uL (0.3-0.8) Absolute Immature Granulocyte (auto 0 10^3 u/L (0-2) Absolute Eosinophils (auto) 0.0 10^3/uL (0.0-0.2) Immature Granulocytes % 0.00 % (0.00-0.50) Eosinophils % 0.3 % (0.0-5.0) Basophils % 0.3 % (0.0-0.2) H Basophils # 0.0 10^3/uL (0.0-0.1) Erythrocyte Sedimentation Rate 8 mm/hr (0-20) Sodium Level 139 mmol/L (132-145) Potassium Level 4.0 mmol/L (3.6-5.2) Chloride Level 101.0 mmol/L (96-109) Carbon Dioxide Level 26.8 mmol/L (20.0-32) Anion Gap 15.2 Blood Urea Nitrogen 8 mg/dL (7-18) Creatinine 0.86 mg/dL (0.59-1.40) Estimated GFR () 88.4 (>/=60) Est GFR (CKD-EPI)(Non-Afr Vietnamese) 73.1 (>/=60) BUN/Creatinine Ratio 9.0 Glucose Level 99 mg/dL (70-110) Calcium Level 8.8 mg/dL (8.4-10.5) Total Bilirubin 0.3 mg/dL (0.2-1.0) Aspartate Amino Transferase (AST) 22 U/L (0-35) Alanine Aminotransferase (ALT) 25 U/L (12-78) Alkaline Phosphatase 83 U/L (50-136) Total Creatine Kinase 168 U/L (26-192) C-Reactive Protein 0.30 mg/dL (0.00-5.00) Total Protein 7.2 g/dL (6.4-8.2) Albumin 3.7 g/dL (3.4-5.0) Globulin 3.5 Albumin/Globulin Ratio 1.057 Influenza Type A Antigen NEGATIVE (NEG) Influenza Type B Antigen NEGATIVE (NEG) SARS-CoV-2 Antigen (Rapid) POSITIVE (NEGATIVE) *A ER DEPART Departure Time of Disposition: 11:33 Disposition: 01 HOME / SELF CARE / HOMELESS Impression: Primary Impression: COVID-19 Condition: Improved Referrals: PCP,UNKNOWN (PCP) PRIMARY CARE PROVIDER Duration or Time Spent with Pa: 12m HERLINDA DUFFY MD Jun 22, 2021 10:27
[2021-06-22 10:31] LABS: CARBON DIOXIDE 26.8 mmol/L (20.0-32)
== END 2021-06-22 11:45 | disposition home or self-care (01) ==
LOC: ER 09:27
DX: U07.1 COVID-19 (principal); Z79.1 Long term (current) use of non-steroidal anti-inflammatories (NSAID); Z79.52 Long term (current) use of systemic steroids; Z88.5 Allergy status to narcotic agent
CPT/HCPCS: 36415; 80053; 82550; 85025; 85651; 86140; 86431; 87426; 87804 ×2; 96372; 99283; J1885; J7512; 99284